=== PATIENT | female | born 2000 | race Caucasian/White ===

== ENCOUNTER → 2022-11-18 06:46 | Outpatient (CLI) | payer OTHER, MEDICAID, SELFPAY ==
--- NOTE | 2022-11-18 06:49 | DI.US.S_ITS ---
PROCEDURE: US PELVIC COMPLETE INDICATIONS: PELVIC/ABDOMINAL PAIN TECHNIQUE: Real-time scanning was performed of the pelvic organs, with image documentation. Additional endovaginal scanning was necessary due to incomplete visualization of the adnexal and endometrial structures by transabdominal scanning. COMPARISON: None. FINDINGS: Uterus: Uterus is a retroverted and normal in size at 10.0 x 4.2 x 4.1 cm. The myometrium is homogeneous. The endometrium measures 7.0 mm combined thickness. Ovaries: The right ovary measures 3.2 x 3.2 x 3.2 cm, with a calculated ovarian volume of 17.1 cc. The left ovary measures 2.6 x 1.9 x 2.5 cm, with a calculated ovarian volume of 6.8 cc. The ovaries have a normal sonographic appearance. There are greater than 12 follicles in the bilateral ovaries. No adnexal masses are seen. Other: No pathologic free abdominal or pelvic fluid. IMPRESSION: 1. Findings meet the [place] definition of polycystic ovaries. In the absence of ovulatory dysfunction or clinically/biochemically diagnosed hyperandrogenism, findings are non specific and do not indicate the presence of polycystic ovarian syndrome. 2. Otherwise unremarkable pelvic ultrasound. We strive to produce accurate, complete, and clear reports of imaging services. To assist us in improving patient care, this report was composed using standard report templates and voice recognition software. Therefore, it may contain abnormal punctuation, insertions and/or omissions. Occasional wrong-word or sound-alike substitutions may occur. Though we review the report and make efforts to correct it, we do recommend that the report be read carefully in proper context to recognize any text inaccuracies. Dictated by: Crystal Moreno M.D. on 11/18/2022 at 10:35 Approved by: Crystal Moreno M.D. on 11/18/2022 at 10:43
== END ==
PROVIDERS: Referring Provider Obstetrics & Gynecology; Visit Provider Obstetrics & Gynecology
DX: E28.2 Polycystic ovarian syndrome (principal); R10.2 Pelvic and perineal pain; R10.9 Unspecified abdominal pain
CPT/HCPCS: 76856